=== PATIENT | female | born 1990 | race Caucasian/White ===

== ENCOUNTER 2016-05-24 23:59 | Emergency (ER) | payer OTHER ==
[~2016-05-24] VITALS: Ht 157.5 cm; Wt 75.0 kg
[~2016-05-24 23:59] MED LIST: DEPO ESTRADIO5 MG/ML IM
[2016-05-25 00:10] VITALS: BP 130/60
[2016-05-25] MEDS ORDERED: AMOXICILLIN500 M1 PO (00:57)
== END 2016-05-25 01:11 | disposition home or self-care (01) ==
LOC: EXP 23:59 → EME 23:59 → EXP 05-25 01:11
DX: J03.90 Acute tonsillitis, unspecified (principal); F17.200 Nicotine dependence, unspecified, uncomplicated
CPT/HCPCS: 99281; 99284